=== PATIENT | female | born 1985 | race Two or more races ===

== ENCOUNTER 2024-03-11 15:59 | Inpatient (IN) | payer OTHER ==
[~2024-03-11] VITALS: Ht 154.9 cm; Wt 2.7 kg
[2024-03-11] MEDS ORDERED: PRENATABS RX T1 EACH PO (16:38)
[2024-03-11 17:13] VITALS: BP 108/74
[2024-03-11] MEDS ORDERED: TERBUTALINE SULF5 MG PO (17:28)
[2024-03-11 23:24] VITALS: BP 125/63
[2024-03-12 03:30] VITALS: BP 91/50
[2024-03-12 07:34] VITALS: BP 112/69
[2024-03-12] MEDS ORDERED: ERYTHROMYCIN BASE OPHT 1GM EACH TUBE OP ONE ×2 (09:33→16:45)
[2024-03-12] MEDS ORDERED: OXYTOCIN 10 UNITS/ML VIAL ONE (09:33)
[2024-03-12] MEDS ORDERED: CARBOPROST TROMETHAMINE 250 MCG/ML AMPUL IM ONE ×2 (09:34→16:45)
[2024-03-12] MEDS ORDERED: CEFAZOLIN SODIUM 1,000 MG VIAL ONE ×2 (09:36→12:27)
[2024-03-12] MEDS ORDERED: CEFAZOLIN SODIUM 1,000 MG VIAL IV SCH ×3 (10:00→18:00)
[2024-03-12] MEDS ORDERED: CEFAZOLIN SODIUM 1,000 MG VIAL IV STA (11:58)
[2024-03-12] MEDS ORDERED: MORPHINE SULFATE 4 MG/ML VIAL IV ONE (14:00)
[2024-03-12] MEDS ORDERED: OXYTOCIN 10 UNITS/ML VIAL IV ONE (16:45)
[2024-03-12] MEDS ORDERED: KETOROLAC TROMETHAMINE 30 MG VIAL IM SCH (18:11)
[2024-03-12] MEDS ORDERED: KETOROLAC TROMETHAMINE 30 MG VIAL IM STA (18:11)
[2024-03-12 18:17] VITALS: BP 119/72
[2024-03-13] VITALS: BP 114/72
[2024-03-13 07:46] VITALS: BP 103/55
[2024-03-13 07:47] LABS: HEMATOCRIT 33.1 % (36.0-45.00); HEMOGLOBIN 10.9 g/dL (12.0-15.00); MEAN CELL VOLUME 87.9 fL (80.00-100.00); MEAN CORPUSCULAR HEMOGLOBIN 29.1 pg (27.00-32.0); MEAN CORPUSCULAR HGB CONC 33.1 g/dl (32.0-36.0); PLATELET COUNT 350 K/uL (150-450); RED BLOOD COUNT 3.76 M/uL (4.00-6.00)
[2024-03-13] MEDS ORDERED: IBUprofen 800 MG TABLET PO PRN (09:15)
[2024-03-13] MEDS ORDERED: KETOROLAC TROMETHAMINE 10 MG TABLET PO PRN (09:15)
[2024-03-13 11:47] VITALS: BP 95/58
[2024-03-13 14:38] VITALS: BP 96/62
[2024-03-14 01:00] VITALS: BP 99/64
[2024-03-14 11:25] VITALS: BP 90/60
== END 2024-03-14 13:10 | disposition home or self-care (01) | DRG 788 ==
LOC: LDR 15:59 → OB/GYN 03-12 11:38
PROVIDERS: ADMIT Specialist; ATTEND Specialist
PROC: 4A1HXCZ Monitoring of Products of Conception, Cardiac Rate, External Approach (ICD-10-PCS; 2024-03-11)
PROC: 10D00Z1 Extraction of Products of Conception, Low, Open Approach (ICD-10-PCS; principal; 2024-03-12 11:30)
DX: O62.0 Primary inadequate contractions (principal); O33.8 Maternal care for disproportion of other origin; O69.81X0 Labor and delivery complicated by cord around neck, without compression, not applicable or unspecified; O69.0XX0 Labor and delivery complicated by prolapse of cord, not applicable or unspecified; Z3A.37 37 weeks gestation of pregnancy; Z37.0 Single live birth; Z20.822 Contact with and (suspected) exposure to COVID-19

== ENCOUNTER 2024-09-08 11:45 | Outpatient (CLI) | payer OTHER ==
[~2024-09-08 11:45] MED LIST: ALEVE ARTHRITI100 GM TOP; PRENATABS RX T1 EACH PO; TERBUTALINE SULF5 MG PO
== END 2024-09-08 11:59 | disposition home or self-care (01) ==
LOC: SONOGRAMA 11:45
DX: N63 Unspecified lump in breast (principal)